=== PATIENT | male | born 1975 | race Caucasian/White ===

== ENCOUNTER 2018-03-02 13:27 | Observation (INO) | payer OTHER ==
[~2018-03-02] VITALS: Ht 182.9 cm; Wt 81.7 kg
[~2018-03-02 13:27] MED LIST: CYCL10 PO; HYDACE10B PO; HYDACE5 PO; META800 PO; NAPR500 PO; NAPR550 PO
[2018-03-02 15:07] LABS: BASOPHILS ABSOLUTE AUTO 0.02 K/mm3 (0.00-0.23); BASOPHILS PERCENT AUTO 0 % (0-2); EOSINOPHILS PERCENT AUTO 2 % (0-6); Hematocrit 45.6 % (37.0-53.0); Hemoglobin 16.1 g/dL (13.5-17.5); IMMATURE GRAN ABSOLUTE AUTO 0.01 K/mm3 (0.00-0.10); IMMATURE GRAN PERCENT AUTO 0 % (0-1); LYMPHOCYTES ABSOLUTE AUTO 1.36 K/mm3 (0.84-5.20); LYMPHOCYTES PERCENT AUTO 30 % (21-46); MONOCYTES ABSOLUTE AUTO 0.39 K/mm3 (0.16-1.47); MONOCYTES PERCENT AUTO 9 % (4-13); Mean Corpuscular HGB 34.7 pg (26.0-34.0); Mean Corpuscular HGB Conc 35.3 g/dL (31.5-36.5); Mean Corpuscular Volume 98 fL (80-100); Mean Platelet Volume 9.9 fL (9.1-12.4); NEUTROPHILS ABSOLUTE AUTO 2.61 K/mm3 (1.96-9.15); NEUTROPHILS PERCENT AUTO 58 % (41-73); Platelet Count 176 K/mm3 (150-400); RDW Coefficient Variation 11.8 % (11.7-14.2); RDW Standard Deviation 42.5 fL (35.1-46.3); Red Blood Cell Count 4.64 M/mm3 (4.30-5.90); White Blood Cell Count 4.49 K/mm3 (4.00-11.30)
[2018-03-02 15:27] LABS: International Normalized Ratio 0.97
[2018-03-02 15:41] LABS: Alanine Aminotransfer (ALT/SGP 21 U/L (12-78); Albumin, Blood 3.8 g/dL (3.4-5.0); Albumin/Globulin Ratio 1.1 (0.8-1.8); Alk Phos 72 U/L (50-136); Anion Gap 5 mmol/L (6-16); Aspartate Aminotrans (AST/SGOT 22 U/L (12-37); Bilirubin, Total 1.1 mg/dL (0.1-1.0); Blood Urea Nitrogen 11 mg/dL (8-24); Bun/Creatinine Ratio 12.6 (12.0-20.0); CO2, Blood 30 mmol/L (21-32); Calcium, Blood 9.2 mg/dL (8.5-10.1); Chloride, Blood 105 mmol/L (98-108); Creatinine, Blood 0.87 mg/dL (0.60-1.20); Ethanol (Alcohol), Blood, Med <3 mg/dL; Globulin, Blood 3.6 g/dL (2.2-4.0); Glomerular Filtration Rate >60 (60-); Glucose, Blood 86 mg/dL (70-99); Potassium, Blood 3.8 mmol/L (3.5-5.5); Sodium, Blood 140 mmol/L (136-145); Total Protein, Blood 7.4 g/dL (6.4-8.2)
[2018-03-03 05:50] LABS: CHOL/HDL RATIO 4.2; Cholesterol 202 mg/dL (50-200); HDL Cholesterol 48 mg/dL (>39); LDL/HDL RATIO 2.5; Low Density Lipoprotein Chol 121 mg/dL (0-110); Triglycerides 164 mg/dL (30-160); Very Low Density Lipoprot Chol 32 mg/dL (6-32)
[2018-03-03] MEDS ORDERED: ATOR20 PO (17:38)
== END 2018-03-03 17:53 | disposition home or self-care (01) ==
LOC: ER 13:27 → MEDS 13:28 → ENPENDDIS 03-03 11:30 → MEDS 03-03 17:53
PROVIDERS: Emergency Medicine; Internal Medicine
DX: I63.9 Cerebral infarction, unspecified (principal); F17.210 Nicotine dependence, cigarettes, uncomplicated; G45.9 Transient cerebral ischemic attack, unspecified; K64.9 Unspecified hemorrhoids
CPT/HCPCS: 36415; 70450; 70551; 72125; 80053; 80061; 82607; 85025; 85610; 93005; 93010; 93306; 93880; 94640; 96372; 99285-25; G0378; G0480; J1650

== ENCOUNTER 2021-01-31 03:53 | Emergency (ER) | payer OTHER ==
[~2021-01-31] VITALS: Ht 182.9 cm; Wt 83.9 kg
[~2021-01-31 03:53] MED LIST changes: +ATOR20 PO
== END 2021-01-31 05:51 | disposition home or self-care (01) ==
LOC: ER 03:53
DX: S01.01XA Laceration without foreign body of scalp, initial encounter (principal); F17.210 Nicotine dependence, cigarettes, uncomplicated; Y00.XXXA Assault by blunt object, initial encounter
CPT/HCPCS: 12001; 70450; 90471; 90714; 99283-25